=== PATIENT | female | born 1935 | race Two or more races ===

== ENCOUNTER 2017-09-20 09:11 | Inpatient (IN) | payer MEDICARE, MEDICAID ==
[~2017-09-20] VITALS: Ht 149.9 cm; Wt 62.8 kg
[~2017-09-20 09:11] MED LIST: ASPI81CH43 PO; ATE50T PO; DOCU1CAP24 PO; GABA100C9 PO; LOPE2CAP PO; LOSA25TA9 PO; NAPR375T27 PO; OMEP20CA74 OR
[2017-09-20] MEDS ORDERED: METO25TA62 PO (09:19)
[2017-09-20] MEDS ORDERED: MET50T PO (09:19)
[2017-09-20] MEDS ORDERED: SODIUM CHLORIDE 0.9% 1,000 ML IV ONE (09:53)
[2017-09-20] MEDS ORDERED: NITROGLYCERIN 0.4 MG SL TAB SL ONE (10:00)
[2017-09-20] MEDS ORDERED: ASPirin 81 mg TAB PO ONE (10:00)
[2017-09-20 10:34] LABS: Partial Thromboplastin Time 25.1 sec (22.64-33.71); Prothrombin Time 10.9 sec (9.37-12.3)
[2017-09-20 10:36] LABS: Alanine Aminotransferase 22 U/L (13-56); Albumin 3.9 g/dL (3.4-5.0); Alkaline Phosphatase 117 U/L (45-117); Anion Gap 11 (5-15); Aspartate Aminotransferase 20 U/L (15-37); BUN/Creatinine Ratio 11.9; Bilirubin, Total 1.3 mg/dL (0.2-1.0); Blood Urea Nitrogen 12 mg/dL (7-18); Calcium 8.4 mg/dL (8.5-10.1); Carbon Dioxide 25 mmol/L (21-32); Chloride 98 mmol/L (98-107); GFR African American 68 mL/min; GFR Non-African American 56 mL/min; Glucose 116 mg/dL (74-106); Potassium 3.8 mmol/L (3.5-5.1); Sodium 134 mmol/L (136-145); Total Protein 8.3 g/dL (6.4-8.2)
[2017-09-20 10:56] LABS: Eosinophils # (auto) 0 uL; Lymphocytes # (auto) 0.5 uL; Red Cell Distribution Width 14.4 % (11.8-14.3)
[2017-09-20 10:58] LABS: Basophils # (auto) 0.1 uL; Basophils % (auto) 0.5 % (0.0-2.0); Hematocrit 44.9 % (36.0-46.0); Hemoglobin 14.8 g/dL (12.2-16.2); Lymphocytes % (auto) 2.1 % (10.0-50.0); Mean Corpuscular Hemoglobin 26.9 pg (28.0-32.0); Mean Corpuscular Volume 81.4 fL (80.0-100.0); Monocytes # (auto) 1.3 uL; Monocytes % (auto) 6.1 % (0.0-12.0); Neutrophils # (auto) 19.9 uL; Neutrophils % (auto) 91.3 % (37.0-80.0); Platelet Count (auto) 284 10^3/uL (140-450); Red Blood Cells 5.51 10^6/uL (4.0-5.20); White Blood Cell 21.7 10^3/uL (4.4-10.8)
[2017-09-20] MEDS ORDERED: MORPHINE SULF INJ 2 MG/ML SYRINGE 1ML IV PRN ×2 (12:45)
[2017-09-20] MEDS ORDERED: ACETAMINOPHEN 500 MG TAB PO PRN (12:45)
[2017-09-20] MEDS ORDERED: ONDANSETRON HCL 4 MG/2 ML VIAL IV PRN (12:45)
[2017-09-20] MEDS ORDERED: KETOROLAC TROMETH 30 MG/ML 1ML VIAL IV ONE (12:45)
[2017-09-20] MEDS ORDERED: NITROGLYCERIN 0.4 MG SL TAB SL PRN (12:45)
[2017-09-20] MEDS ORDERED: AZITHROMYCIN 500MG/ 250ML 250 ML IV ONE (12:45)
[2017-09-20] MEDS ORDERED: cefTRIAXone 1GM/10ml IVPUSH 10 ML IV ONE (12:45)
[2017-09-20] MEDS ORDERED: PANTOPRAZOLE 40 MG/10 ML VIAL IV ONE (13:00)
[2017-09-20 13:13] LABS: Cholesterol 182 mg/dL (< 200); HDL Cholesterol 88 mg/dL (40-59); LDL Cholesterol 90 mg/dL (< 100); Triglycerides 97 mg/dL (< 150)
[2017-09-20 13:29] LABS: Urine Bacteria NONE SEEN /hpf (None Seen); Urine Blood Negative /uL (Negative); Urine Mucus FEW (None Seen); Urine Specific Gravity 1.017 (1.001-1.035); Urine WBC 4 /hpf (0 - 5)
[2017-09-20] MEDS: SODIUM CHLORIDE 0.9% 1,000 ML IV SCH (14:22)
[2017-09-20 17:14] VITALS: BP 143/77
[2017-09-20 17:37] VITALS: BP 139/75
[2017-09-20] MEDS: HYDROcodone-ACET 5/325MG TAB PO PRN (18:45)
[2017-09-20] MEDS: IPRATROPIUM BROM 0.5 MG/2.5ML INH SOL NEB SCH (19:27)
[2017-09-20] MEDS: ALBUTEROL SULF 2.5 MG/0.5ML(0.5%) NEB SOLN NEB SCH (19:27)
[2017-09-20] MEDS: METOPROLOL TARTRATE 25 MG TAB PO SCH (22:00)
[2017-09-20 22:06] VITALS: BP 93/61
[2017-09-20 23:14] VITALS: BP 102/68
[2017-09-20 23:23] VITALS: BP 93/61
[2017-09-21] MEDS: IPRATROPIUM BROM 0.5 MG/2.5ML INH SOL NEB SCH ×4 (00:51→18:48)
[2017-09-21] MEDS: ALBUTEROL SULF 2.5 MG/0.5ML(0.5%) NEB SOLN NEB SCH ×4 (00:51→18:48)
[2017-09-21 04:50] VITALS: BP 111/69
[2017-09-21] MEDS: SODIUM CHLORIDE 0.9% 1,000 ML IV SCH (06:22)
[2017-09-21 07:28] LABS: Basophils # (auto) 0 uL; Basophils % (auto) 0.2 % (0.0-2.0); Eosinophils # (auto) 0 uL; Hemoglobin 12.9 g/dL (12.2-16.2)
[2017-09-21 07:32] LABS: Hematocrit 38.5 % (36.0-46.0); Lymphocytes # (auto) 0.9 uL; Lymphocytes % (auto) 4.4 % (10.0-50.0); Mean Corpuscular Hemoglobin 27.1 pg (28.0-32.0); Mean Corpuscular Hgb Conc. 33.5 g/dL (32.0-36.0); Monocytes # (auto) 0.9 uL; Monocytes % (auto) 4.3 % (0.0-12.0); Neutrophils # (auto) 18.9 uL; Neutrophils % (auto) 91.1 % (37.0-80.0); Platelet Count (auto) 236 10^3/uL (140-450); Red Blood Cells 4.76 10^6/uL (4.0-5.20); Red Cell Distribution Width 14.3 % (11.8-14.3); White Blood Cell 20.7 10^3/uL (4.4-10.8)
[2017-09-21 07:48] LABS: BUN/Creatinine Ratio 28.7; Potassium 3.8 mmol/L (3.5-5.1)
[2017-09-21] MEDS: cefTRIAXone 1GM/10ml IVPUSH 10 ML IV SCH (08:56)
[2017-09-21 09:00] VITALS: BP 113/61
[2017-09-21] MEDS ORDERED: PANTOPRAZOLE 40 MG/10 ML VIAL IV SCH (10:00)
[2017-09-21] MEDS: AZITHROMYCIN 500MG/ 250ML 250 ML IV SCH (10:33)
[2017-09-21] MEDS: METOPROLOL TARTRATE 25 MG TAB PO SCH ×2 (10:34→21:41)
[2017-09-21] MEDS: ASPirin-EC 81 mg tab PO SCH (10:34)
[2017-09-21 13:00] VITALS: BP 127/72
[2017-09-21 16:33] VITALS: BP 129/65
[2017-09-21] MEDS: HYDROcodone-ACET 5/325MG TAB PO PRN (21:40)
[2017-09-21 22:00] VITALS: BP 145/84
[2017-09-22] MEDS: IPRATROPIUM BROM 0.5 MG/2.5ML INH SOL NEB SCH ×4 (00:32→19:42)
[2017-09-22] MEDS: ALBUTEROL SULF 2.5 MG/0.5ML(0.5%) NEB SOLN NEB SCH ×4 (00:32→19:42)
[2017-09-22 05:00] VITALS: BP 144/82
[2017-09-22 06:32] LABS: Basophils # (auto) 0 uL; Eosinophils # (auto) 0.1 uL; Hematocrit 39.4 % (36.0-46.0); Monocytes # (auto) 0.7 uL; Neutrophils # (auto) 11.4 uL; White Blood Cell 13.3 10^3/uL (4.4-10.8)
[2017-09-22 06:35] LABS: Basophils % (auto) 0.2 % (0.0-2.0); Eosinophils % (auto) 0.8 % (0.0-7.0); Hemoglobin 12.9 g/dL (12.2-16.2); Lymphocytes % (auto) 7.8 % (10.0-50.0); Mean Corpuscular Hemoglobin 26.6 pg (28.0-32.0); Mean Corpuscular Hgb Conc. 32.7 g/dL (32.0-36.0); Mean Corpuscular Volume 81.3 fL (80.0-100.0); Monocytes % (auto) 5.4 % (0.0-12.0); Neutrophils % (auto) 85.8 % (37.0-80.0); Nucleated Red Blood Cells % 0.1 %; Platelet Count (auto) 246 10^3/uL (140-450); Red Blood Cells 4.84 10^6/uL (4.0-5.20); Red Cell Distribution Width 14.5 % (11.8-14.3)
[2017-09-22] MEDS: cefTRIAXone 1GM/10ml IVPUSH 10 ML IV SCH (08:48)
[2017-09-22] MEDS: PANTOPRAZOLE 40 MG TAB PO SCH (09:26)
[2017-09-22] MEDS: ASPirin-EC 81 mg tab PO SCH (09:26)
[2017-09-22] MEDS: METOPROLOL TARTRATE 25 MG TAB PO SCH ×2 (09:27→21:42)
[2017-09-22] MEDS: AZITHROMYCIN 500MG/ 250ML 250 ML IV SCH (09:27)
[2017-09-22 09:48] VITALS: BP 150/89
[2017-09-22 13:55] VITALS: BP 149/82
[2017-09-22 17:00] VITALS: BP 141/85
[2017-09-22] MEDS ORDERED: MORPHINE SULFATE 4 MG/ML SYR/VIAL IV PRN ×2 (20:15)
[2017-09-22 22:00] VITALS: BP 165/101
[2017-09-23] MEDS ORDERED: METOPROLOL TARTRATE 25 MG TAB PO ONE (01:00)
[2017-09-23] MEDS: IPRATROPIUM BROM 0.5 MG/2.5ML INH SOL NEB SCH ×3 (01:15→11:39)
[2017-09-23] MEDS: ALBUTEROL SULF 2.5 MG/0.5ML(0.5%) NEB SOLN NEB SCH ×3 (01:16→11:39)
[2017-09-23 05:30] VITALS: BP 158/95
[2017-09-23] MEDS ORDERED: LOSARTAN POTASSIUM 25 MG TAB PO SCH (10:00)
[2017-09-23] MEDS ORDERED: AZITHROMYCIN 250 MG TAB PO SCH (10:00)
[2017-09-23 10:23] VITALS: BP 147/86
[2017-09-23] MEDS: METOPROLOL TARTRATE 25 MG TAB PO SCH (11:02)
[2017-09-23] MEDS: PANTOPRAZOLE 40 MG TAB PO SCH (11:02)
[2017-09-23] MEDS: ASPirin-EC 81 mg tab PO SCH (11:02)
[2017-09-23] MEDS: cefTRIAXone 1GM/10ml IVPUSH 10 ML IV SCH (11:03)
[2017-09-23] MEDS ORDERED: LOSARTAN POTASSIUM 25 MG TAB PO ONE (12:45)
[2017-09-23 13:00] VITALS: BP 163/108
== END 2017-09-23 16:33 | disposition home or self-care (01) | DRG 720 ==
LOC: ER 09:11 → TELE 09:12 → TELE-WESTW 16:45 → WEST WING 09-22 12:29
PROVIDERS: ADMIT Internal Medicine; ATTEND Internal Medicine
DX: A41.9 Sepsis, unspecified organism (principal); J18.9 Pneumonia, unspecified organism; J44.0 Chronic obstructive pulmonary disease with (acute) lower respiratory infection; I11.9 Hypertensive heart disease without heart failure; E11.9 Type 2 diabetes mellitus without complications; G89.29 Other chronic pain; J44.1 Chronic obstructive pulmonary disease with (acute) exacerbation; K21.9 Gastro-esophageal reflux disease without esophagitis; M54.5 Low back pain; K27.9 Peptic ulcer, site unspecified, unspecified as acute or chronic, without hemorrhage or perforation; K57.90 Diverticulosis of intestine, part unspecified, without perforation or abscess without bleeding; M19.90 Unspecified osteoarthritis, unspecified site; Z79.82 Long term (current) use of aspirin; Z79.899 Other long term (current) drug therapy; Z82.49 Family history of ischemic heart disease and other diseases of the circulatory system; Z83.3 Family history of diabetes mellitus; Z90.710 Acquired absence of both cervix and uterus; Z79.84 Long term (current) use of oral hypoglycemic drugs; Z90.49 Acquired absence of other specified parts of digestive tract
CPT/HCPCS: 36415; 71045; 80048; 80053; 80061; 81001; 83036; 83880; 84443; 84484; 85025; 85610; 85652; 85730; 87086; 87400; 93005; 93306; 94640; 96372; 96374; 96375; C9113; J1885

== ENCOUNTER → 2019-05-22 | Outpatient (CLI) | payer MEDICARE, MEDICAID ==
[~2019-05-22] VITALS: Ht 147.3 cm; Wt 61.7 kg
[~2019-05-22] MED LIST changes: -ATE50T PO; +DOBUTamine 1000MCG/ML 100 ML IV ONE; +DOBUTamine 1000MCG/ML 250 ML IV ONE; -DOCU1CAP24 PO; -LOPE2CAP PO; +LOSA25TA38 PO; -LOSA25TA9 PO; +MET50T PO; -NAPR375T27 PO; -OMEP20CA74 OR; +cloNIDine HCL 0.1 MG TAB ONE
== END | disposition home or self-care (01) ==
LOC: Rad HDHVI 12:53
PROVIDERS: ATTEND Internal Medicine
DX: I10 Essential (primary) hypertension (principal); M25.511 Pain in right shoulder; E78.5 Hyperlipidemia, unspecified; J44.9 Chronic obstructive pulmonary disease, unspecified
CPT/HCPCS: 78452; 93005; 96374; 96375; A9500; J1250

== ENCOUNTER → 2019-11-01 | Outpatient (CLI) | payer MEDICARE, MEDICAID ==
[~2019-11-01] MED LIST changes: -DOBUTamine 1000MCG/ML 100 ML IV ONE; -DOBUTamine 1000MCG/ML 250 ML IV ONE; -cloNIDine HCL 0.1 MG TAB ONE
== END | disposition home or self-care (01) ==
LOC: Rad HDHVI 09:54
PROVIDERS: ATTEND Internal Medicine Cardiovascular Disease
DX: I35.1 Nonrheumatic aortic (valve) insufficiency (principal); R94.4 Abnormal results of kidney function studies; I10 Essential (primary) hypertension; J44.9 Chronic obstructive pulmonary disease, unspecified; R07.9 Chest pain, unspecified
CPT/HCPCS: 36415; 82565; 93306

== ENCOUNTER → 2019-12-28 | Outpatient (CLI) | payer MEDICARE, MEDICAID ==
[~2019-12-28] MED LIST changes: +FUROSEMIDE 100 MG/10ML VIAL IV ONE; +FUROSEMIDE INJECTION 10 ML ONE; +POTASSIUM CHL 10 Meq TABLET PO ONE
[2019-12-28 10:00] VITALS: BP 173/76
--- NOTE | 2019-12-28 10:00 | NUR ---
PATIENT CAME INTO CLINIC WITH BILAT LOWER EXTREMITY SWELLING, PATIENT IS CZECH SPEAKING, HALLIE USED EDGE BEADER FOR PT AND DAUGHTER. PATIENT AAOx4, AMBULATORY, ON 2 LPM N/C.
--- NOTE | 2019-12-28 10:30 | NUR ---
IV insertion IV access obtained, via clean sterile technique by inserting 22 gauge catheter at LAC after 2 attempt(s). IV secured properly. No trauma to site. Patient tolerated procedure well.
[2019-12-28 12:03] LABS: Basophils # (auto) 0 10 ^3/uL (0-0.2); Eosinophils # (auto) 0.1 10 ^3/uL (0-0.8); Hemoglobin 12.2 g/dL (12.2-16.2); Lymphocytes # (auto) 1.2 10 ^3/uL (0.4-5.4); Monocytes # (auto) 0.4 10 ^3/uL (0-1.3); Monocytes % (auto) 7.6 % (0.0-12.0); Neutrophils # (auto) 3.9 10 ^3/uL (1.6-8.6); White Blood Cell 5.7 10^3/uL (4.4-10.8)
[2019-12-28 12:06] LABS: Basophils % (auto) 0.4 % (0.0-2.0); Eosinophils % (auto) 1.9 % (0.0-7.0); Hematocrit 37.8 % (36.0-46.0); Lymphocytes % (auto) 21.3 % (10.0-50.0); Mean Corpuscular Hemoglobin 26.2 pg (28.0-32.0); Mean Corpuscular Hgb Conc. 32.2 g/dL (32.0-36.0); Mean Corpuscular Volume 81.3 fL (80.0-100.0); Neutrophils % (auto) 68.8 % (37.0-80.0); Nucleated Red Blood Cells % 0.1 %; Platelet Count (auto) 307 10^3/uL (140-450); Red Blood Cells 4.65 10^6/uL (4.0-5.20); Red Cell Distribution Width 14.5 % (11.8-14.3)
[2019-12-28 12:15] LABS: Albumin 3.4 g/dL (3.4-5.0); Calcium 8.5 mg/dL (8.5-10.1); Magnesium 2.2 mg/dL (1.6-2.6); Potassium 4.2 mmol/L (3.5-5.1)
[2019-12-28 12:20] LABS: BUN/Creatinine Ratio 19.4; Bilirubin, Total 0.6 mg/dL (0.2-1.0); Total Protein 7.1 g/dL (6.4-8.2)
--- NOTE | 2019-12-28 13:00 | NUR ---
PATIENT LABS BACK, MD UPDATED.
--- NOTE | 2019-12-28 13:56 | NUR ---
IV removal IV DC'd with sterile technique, catheter fully intact. Pressure dressing applied to site. Patient tolerated procedure well.
[2019-12-28 14:00] VITALS: BP 188/89
--- NOTE | 2019-12-28 14:00 | NUR ---
[facility] CLINIC Discharge Instructions See e-MAR for any mediations given with this visit. Patient education given on disease process. Patient verbalized understanding. Previous labs reviewed. Patient discharged in stable condition with after care instructions and follow up appointment. NOTE PATIENT WILL TAKE SCHEDULED BP MEDS AT HOME. LASIX IVP ADMIN BY CAROLINE CARO POTASSIUM PO ADMIN BY CAROLINE CARO. VOIDED X6.
== END | disposition home or self-care (01) ==
LOC: CHF HDHVI 10:26
PROVIDERS: ATTEND Internal Medicine Cardiovascular Disease
DX: I50.9 Heart failure, unspecified (principal); Z79.899 Other long term (current) drug therapy
CPT/HCPCS: 36415; 80053; 83735; 83880; 85025; 96374; G0463; J1940

== ENCOUNTER → 2020-05-27 | Outpatient (CLI) | payer MEDICARE, MEDICAID ==
[~2020-05-27] MED LIST changes: -FUROSEMIDE 100 MG/10ML VIAL IV ONE; -FUROSEMIDE INJECTION 10 ML ONE; -POTASSIUM CHL 10 Meq TABLET PO ONE
== END | disposition home or self-care (01) ==
LOC: Rad HDHVI 13:06
PROVIDERS: ATTEND Internal Medicine Cardiovascular Disease
DX: I10 Essential (primary) hypertension (principal); I42.1 Obstructive hypertrophic cardiomyopathy; R07.89 Other chest pain
CPT/HCPCS: 93306

== ENCOUNTER → 2020-12-09 | Outpatient (CLI) | payer MEDICARE, MEDICAID | END | disposition home or self-care (01) | LOC: Rad HDHVI 12:20 | PROVIDERS: ATTEND Internal Medicine | DX: M19.011 Primary osteoarthritis, right shoulder (principal); M25.511 Pain in right shoulder | CPT/HCPCS: 73030 ==

== ENCOUNTER 2022-06-09 09:19 | Inpatient (IN) | payer MEDICARE, MEDICAID ==
[~2022-06-09] VITALS: Ht 160 cm; Wt 72.4 kg
[2022-06-09 09:58] LABS: Basophils # (auto) 0 10 ^3/uL (0-0.2); Basophils % (auto) 0.3 % (0.0-2.0); Eosinophils # (auto) 0.1 10 ^3/uL (0-0.8); Eosinophils % (auto) 1.1 % (0.0-7.0); Hematocrit 38.1 % (36.0-46.0); Hemoglobin 12.4 g/dL (12.2-16.2); Lymphocytes # (auto) 1.3 10 ^3/uL (0.4-5.4); Lymphocytes % (auto) 23.1 % (10.0-50.0); Mean Corpuscular Hemoglobin 26.4 pg (28.0-32.0); Mean Corpuscular Hgb Conc. 32.7 g/dL (32.0-36.0); Mean Corpuscular Volume 80.7 fL (80.0-100.0); Monocytes # (auto) 0.4 10 ^3/uL (0-1.3); Neutrophils % (auto) 68.5 % (37.0-80.0); Red Blood Cells 4.72 10^6/uL (4.0-5.20); Red Cell Distribution Width 14.1 % (11.8-14.3); White Blood Cell 5.8 10^3/uL (4.4-10.8)
[2022-06-09 10:17] LABS: Albumin 3.8 g/dL (3.4-5.0); Calcium 8.4 mg/dL (8.5-10.1); Potassium 3.9 mmol/L (3.5-5.1)
[2022-06-09 10:21] LABS: BUN/Creatinine Ratio 12.7; Bilirubin, Total 0.7 mg/dL (0.2-1.0); Total Protein 7.4 g/dL (6.4-8.2)
[2022-06-09] MEDS ORDERED: ASPirin 81 mg TAB PO ONE (11:00)
[2022-06-09] MEDS ORDERED: dilTIAZem 25 MG/5 ML VIAL IV ONE (11:00)
[2022-06-09] MEDS ORDERED: dilTIAZem 120MG ER CAP PO ONE (12:15)
[2022-06-09] MEDS ORDERED: ONDANSETRON HCL 4 MG/2 ML VIAL IV PRN (15:45)
[2022-06-09] MEDS ORDERED: MORPHINE SULFATE INJ 2 MG/ml SYRG IV PRN (15:45)
[2022-06-09] MEDS ORDERED: PANTOPRAZOLE 40 MG/10 ML VIAL INJ IV ONE (15:45)
[2022-06-09] MEDS ORDERED: ACETAMINOPHEN 325 MG TAB PO PRN (15:45)
[2022-06-09] MEDS ORDERED: NITROGLYCERIN 0.4 MG SL TAB SL PRN (15:45)
[2022-06-09] MEDS ORDERED: DEXTROSE (50%) 50ML SYRG IV PRN (16:30)
[2022-06-09] MEDS: InsuLIN REG 1unit/0.01ml Soln (100units/ml) SC SCH ×2 (17:00→22:35)
[2022-06-09] MEDS: SODIUM CHLORIDE 0.9% 1,000 ML IV SCH (17:08)
[2022-06-09] MEDS: ACCU-CHEK COMFORT CURVE STRIP VI SCH ×2 (17:15→22:35)
[2022-06-09 17:23] LABS: Cholesterol 198 mg/dL (< 200)
[2022-06-09 17:26] LABS: HDL Cholesterol 72 mg/dL (40-59); LDL Cholesterol 114 mg/dL (< 100); Triglycerides 151 mg/dL (< 150)
[2022-06-09 18:22] LABS: Urine Bacteria FEW /hpf (None Seen); Urine Blood Negative /uL (Negative); Urine Mucus FEW (None Seen); Urine Specific Gravity 1.006 (1.001-1.035); Urine WBC 1 /hpf (0 - 5)
[2022-06-09] MEDS: METOPROLOL TARTRATE 50 MG TAB PO SCH (22:36)
[2022-06-09] MEDS: ATORVASTATIN 20 MG TAB PO SCH (22:36)
[2022-06-10 05:56] LABS: Albumin 3.4 g/dL (3.4-5.0); Calcium 8.6 mg/dL (8.5-10.1); Potassium 4.2 mmol/L (3.5-5.1)
[2022-06-10 06:02] LABS: Basophils # (auto) 0 10 ^3/uL (0-0.2); Basophils % (auto) 0.3 % (0.0-2.0); Eosinophils # (auto) 0 10 ^3/uL (0-0.8); Eosinophils % (auto) 0.5 % (0.0-7.0); Hematocrit 35.4 % (36.0-46.0); Hemoglobin 11.5 g/dL (12.2-16.2); Mean Corpuscular Hgb Conc. 32.4 g/dL (32.0-36.0); Monocytes # (auto) 0.4 10 ^3/uL (0-1.3); White Blood Cell 6.5 10^3/uL (4.4-10.8)
[2022-06-10 06:06] LABS: Lymphocytes % (auto) 15.5 % (10.0-50.0); Mean Corpuscular Volume 80.2 fL (80.0-100.0); Monocytes % (auto) 6.6 % (0.0-12.0); Neutrophils % (auto) 77.1 % (37.0-80.0); Red Blood Cells 4.41 10^6/uL (4.0-5.20); Red Cell Distribution Width 14.4 % (11.8-14.3)
[2022-06-10 06:11] LABS: BUN/Creatinine Ratio 18.5; Total Protein 6.8 g/dL (6.4-8.2)
[2022-06-10] MEDS: InsuLIN REG 1unit/0.01ml Soln (100units/ml) SC SCH ×4 (07:00→22:00)
[2022-06-10] MEDS: ACCU-CHEK COMFORT CURVE STRIP VI SCH ×4 (07:12→22:16)
[2022-06-10] MEDS: SODIUM CHLORIDE 0.9% 1,000 ML IV SCH (08:25)
[2022-06-10] MEDS: ENOXAPARIN SOD 40 MG/0.4 ML SYRINGE SC SCH (11:37)
[2022-06-10] MEDS: PANTOPRAZOLE 40 MG/10 ML VIAL INJ IV SCH (11:37)
[2022-06-10] MEDS: ASPirin 81 mg TAB PO SCH (11:38)
[2022-06-10] MEDS: METOPROLOL TARTRATE 50 MG TAB PO SCH ×2 (11:38→23:11)
[2022-06-10] MEDS: LOSARTAN POTASSIUM 25 MG TAB PO SCH (11:39)
[2022-06-10] MEDS ORDERED: OMEP-260 PO (14:04)
[2022-06-10] MEDS ORDERED: LOSA-39 PO (14:04)
[2022-06-10] MEDS ORDERED: AMLO-489 PO (14:04)
[2022-06-10] MEDS ORDERED: ALBUAER3 IN (14:04)
[2022-06-10] MEDS ORDERED: ATEN100T PO (14:04)
[2022-06-10] MEDS ORDERED: MELO1TAB73 PO (14:04)
[2022-06-10] MEDS ORDERED: ACET-1156 PO (14:04)
[2022-06-10 16:51] VITALS: BP 147/77
[2022-06-10 20:00] VITALS: BP 130/72
[2022-06-10 22:00] VITALS: BP 130/72
[2022-06-10] MEDS: ATORVASTATIN 20 MG TAB PO SCH (22:17)
[2022-06-11 05:00] VITALS: BP 133/63
[2022-06-11] MEDS: InsuLIN REG 1unit/0.01ml Soln (100units/ml) SC SCH ×3 (06:18→16:51)
[2022-06-11] MEDS: ACCU-CHEK COMFORT CURVE STRIP VI SCH ×3 (06:18→16:51)
[2022-06-11 08:53] VITALS: BP 122/61
[2022-06-11] MEDS: LOSARTAN POTASSIUM 25 MG TAB PO SCH (09:47)
[2022-06-11] MEDS: ASPirin 81 mg TAB PO SCH (09:47)
[2022-06-11] MEDS: PANTOPRAZOLE 40 MG/10 ML VIAL INJ IV SCH (09:47)
[2022-06-11] MEDS: METOPROLOL TARTRATE 50 MG TAB PO SCH ×2 (09:48→21:36)
[2022-06-11] MEDS: ENOXAPARIN SOD 40 MG/0.4 ML SYRINGE SC SCH (09:48)
[2022-06-11] MEDS ORDERED: FUROSEMIDE 40 MG/4 ML VIAL IV SCH (10:00)
[2022-06-11] MEDS ORDERED: ADENOSINE 60 MG in GIVE UN-DILUTED 0 ML IV ONE (10:45)
[2022-06-11 12:40] VITALS: BP 123/76
[2022-06-11 20:28] VITALS: BP 123/76
[2022-06-11] MEDS: ATORVASTATIN 20 MG TAB PO SCH (21:35)
[2022-06-11 21:45] VITALS: BP 158/77
== END 2022-06-11 20:25 | disposition home or self-care (01) | DRG 201 ==
LOC: ER 09:19 → TELE 15:37 → TELE-WESTW 06-10 15:31
PROVIDERS: ADMIT Nurse Practitioner Family; ATTEND Student in an Organized Health Care Education/Training Program
DX: I47.1 Supraventricular tachycardia (principal); J96.10 Chronic respiratory failure, unspecified whether with hypoxia or hypercapnia; Z99.81 Dependence on supplemental oxygen; R07.89 Other chest pain; I48.91 Unspecified atrial fibrillation; Z68.30 Body mass index [BMI] 30.0-30.9, adult; J43.9 Emphysema, unspecified; J98.11 Atelectasis; E66.01 Morbid (severe) obesity due to excess calories; I10 Essential (primary) hypertension; R73.03 Prediabetes; M54.50 Low back pain, unspecified; R73.9 Hyperglycemia, unspecified; Z90.710 Acquired absence of both cervix and uterus; Z90.49 Acquired absence of other specified parts of digestive tract; Z79.01 Long term (current) use of anticoagulants; Z68.28 Body mass index [BMI] 28.0-28.9, adult
CPT/HCPCS: 36415; 71046; 71275; 72100; 78452; 80053; 80061; 81001; 82962; 83036; 83735; 83880; 84443; 84484; 85025; 85379; 87426; 93005; 93017; 93306; 96361; 96374; 99291; C9113; G0378; J0153

== ENCOUNTER → 2023-02-07 | Outpatient (CLI) | payer MEDICARE, MEDICAID ==
[~2023-02-07] MED LIST changes: +ACET-1881 PO; +ALBUAER3 IN; +AMLO1TAB22 PO; -ASPI81CH43 PO; +ATEN100T PO; +BUMETANIDE 1mg/4ml VIAL (0.25mg/ml) ONE; +BUMETANIDE 2.5mg/10ml (0.25 mg/ml) INJ IV ONE; -GABA100C9 PO; +LOSA100T58 PO; -LOSA25TA38 PO; +MELO7.5T7 PO; -MET50T PO; +OMEP1CAP70 PO; +POTASSIUM CHL 20 Meq TABLET PO ONE
[2023-02-07 11:18] VITALS: BP 124/60
[2023-02-07 11:44] VITALS: BP 156/78
== END | disposition home or self-care (01) ==
LOC: CHF HDHVI 11:21
PROVIDERS: ATTEND Internal Medicine Cardiovascular Disease
DX: I10 Essential (primary) hypertension (principal); J43.9 Emphysema, unspecified; J96.10 Chronic respiratory failure, unspecified whether with hypoxia or hypercapnia; I48.91 Unspecified atrial fibrillation; E66.01 Morbid (severe) obesity due to excess calories; Z68.30 Body mass index [BMI] 30.0-30.9, adult; Z79.01 Long term (current) use of anticoagulants; Z99.81 Dependence on supplemental oxygen; Z90.49 Acquired absence of other specified parts of digestive tract; Z90.710 Acquired absence of both cervix and uterus
CPT/HCPCS: 96374; G0463; J3490

== ENCOUNTER → 2023-08-01 | Outpatient (CLI) | payer MEDICARE, MEDICAID ==
[~2023-08-01] MED LIST changes: +BUME2TAB5 PO; -BUMETANIDE 1mg/4ml VIAL (0.25mg/ml) ONE; -BUMETANIDE 2.5mg/10ml (0.25 mg/ml) INJ IV ONE; +CHOL20007 PO; +FER325T PO; +POM; +POTA-220 PO; -POTASSIUM CHL 20 Meq TABLET PO ONE; +RANO500T3 PO
[2023-08-01 13:17] VITALS: BP 177/84; PULSE 74; RESP 16; O2SAT 97
[2023-08-01 13:32] VITALS: BP 144/69; PULSE 77; RESP 16; O2SAT 97
== END | disposition home or self-care (01) ==
LOC: CHF HDHVI 12:57
PROVIDERS: ATTEND Internal Medicine Cardiovascular Disease
DX: Z01.818 Encounter for other preprocedural examination (principal); I11.0 Hypertensive heart disease with heart failure; I50.33 Acute on chronic diastolic (congestive) heart failure; R06.02 Shortness of breath; R60.1 Generalized edema
CPT/HCPCS: 93005; G0463

== ENCOUNTER 2023-08-04 08:01 | Day surgery (SDC) | payer MEDICARE, MEDICAID ==
[2023-08-01 14:09] LABS: Basophils # (auto) 0 10 ^3/uL (0-0.2); Eosinophils # (auto) 0.3 10 ^3/uL (0-0.8); Hemoglobin 11.4 g/dL (12.2-16.2); Monocytes # (auto) 0.8 10 ^3/uL (0-1.3); White Blood Cell 7.7 10^3/uL (4.4-10.8)
[2023-08-01 14:11] LABS: Basophils % (auto) 0.4 % (0.0-2.0); Eosinophils % (auto) 3.9 % (0.0-7.0); Hematocrit 35.1 % (36.0-46.0); Lymphocytes # (auto) 1.6 10 ^3/uL (0.4-5.4); Lymphocytes % (auto) 20.5 % (10.0-50.0); Mean Corpuscular Hemoglobin 25.8 pg (28.0-32.0); Mean Corpuscular Hgb Conc. 32.4 g/dL (32.0-36.0); Mean Corpuscular Volume 79.9 fL (80.0-100.0); Monocytes % (auto) 10.6 % (0.0-12.0); Neutrophils % (auto) 64.6 % (37.0-80.0); Red Cell Distribution Width 14.9 % (11.8-14.3)
[2023-08-01 14:26] LABS: Anion Gap 5 (5-15); Carbon Dioxide 33 mmol/L (20-30); Chloride 102 mmol/L (98-107); Potassium 4.8 mmol/L (3.5-5.1); Sodium 140 mmol/L (136-145)
[2023-08-01 14:27] LABS: Calcium 9.4 mg/dL (8.5-10.1)
[2023-08-01 14:30] LABS: INR 0.98 (0.9-1.15); Partial Thromboplastin Time 26.6 SEC (24.5-34.5); Prothrombin Time 10.3 sec (9.3-11.8)
[2023-08-01 14:32] LABS: BUN/Creatinine Ratio 23.2 (10.0-20.0); Blood Urea Nitrogen 16 mg/dL (9-23); Glucose 114 mg/dL (74-106)
[~2023-08-04] VITALS: Ht 144.8 cm; Wt 71.2 kg
[2023-08-04] VITALS (10 sets, daily range): BP systolic 101–158; BP diastolic 59–98; PULSE 79–97; RESP 13–20; TEMP 97.6; O2SAT 94–99
[~2023-08-04 08:01] MED LIST changes: -ACET-1881 PO; -AMLO1TAB22 PO
[2023-08-04] MEDS ORDERED: fentaNYL CITRATE 100 MCG/2 ML VL ONE (10:00)
[2023-08-04] MEDS ORDERED: MIDAZOLAM HCL 2MG/2ML 2ml VIAL (1mg/ml) ONE (10:00)
[2023-08-04] MEDS ORDERED: SODIUM CHL 0.9% 0 ML ONE (10:00)
[2023-08-04] MEDS ORDERED: ANGIOMAX 250 MG VIAL IV ONE (10:00)
[2023-08-04] MEDS ORDERED: LIDOCAINE 2%HCL (LOCAL ANESTH.) INJ 20ML MDV ONE (10:00)
== END 2023-08-04 13:05 | disposition home or self-care (01) ==
LOC: CATH 08:01
PROVIDERS: ATTEND Internal Medicine Cardiovascular Disease
DX: R07.89 Other chest pain (principal); I73.9 Peripheral vascular disease, unspecified; J44.9 Chronic obstructive pulmonary disease, unspecified; I11.0 Hypertensive heart disease with heart failure; I50.9 Heart failure, unspecified; R06.02 Shortness of breath
CPT/HCPCS: 36415; 80048; 85025; 85610; 85730; 93458; C1894; J2250; J3010; 99152

== ENCOUNTER 2023-11-12 07:39 | Inpatient (IN) | payer MEDICARE, MEDICAID ==
[~2023-11-12] VITALS: Ht 144.8 cm; Wt 67.8 kg
[~2023-11-12 07:39] MED LIST changes: +LOSA-535 PO; -LOSA100T58 PO
[2023-11-12 08:10] VITALS: PULSE 68; RESP 14; O2SAT 98
[2023-11-12] MEDS: ALBUTEROL SULF 2.5 MG/0.5ML(0.5%) NEB SOLN NEB ONE (08:15)
[2023-11-12] MEDS: IPRATROPIUM BROM 0.5 MG/2.5ML INH SOL NEB ONE (08:15)
[2023-11-12 08:43] LABS: Basophils # (auto) 0 10 ^3/uL (0-0.2); Basophils % (auto) 0.4 % (0.0-2.0); Eosinophils # (auto) 0.1 10 ^3/uL (0-0.8); Eosinophils % (auto) 1.8 % (0.0-7.0); Hematocrit 38.6 % (36.0-46.0); Hemoglobin 12.1 g/dL (12.2-16.2); Lymphocytes # (auto) 0.9 10 ^3/uL (0.4-5.4); Lymphocytes % (auto) 10.2 % (10.0-50.0); Mean Corpuscular Hemoglobin 24.6 pg (28.0-32.0); Mean Corpuscular Hgb Conc. 31.3 g/dL (32.0-36.0); Mean Corpuscular Volume 78.6 fL (80.0-100.0); Monocytes # (auto) 0.7 10 ^3/uL (0-1.3); Monocytes % (auto) 8.6 % (0.0-12.0); Neutrophils # (auto) 6.7 10 ^3/uL (1.6-8.6); Nucleated Red Blood Cells % 0.1 %; Red Blood Cells 4.91 10^6/uL (4.0-5.20); Red Cell Distribution Width 15.6 % (11.8-14.3); White Blood Cell 8.4 10^3/uL (4.4-10.8)
[2023-11-12] MEDS: methylPREDNISolone SOD SUCC 125 MG/2 ML VL IV ONE (08:46)
[2023-11-12 09:07] LABS: Alanine Aminotransferase 16 U/L (7-40); Albumin 4.2 g/dL (3.2-4.8); Alkaline Phosphatase 110 U/L (46-116); Anion Gap 7 (5-15); Aspartate Aminotransferase 23 U/L (13-40); Bilirubin, Total 0.7 mg/dL (0.2-1.0); Calcium 8.9 mg/dL (8.5-10.1); Carbon Dioxide 27 mmol/L (20-30); Chloride 103 mmol/L (98-107); Glucose 135 mg/dL (74-106); Potassium 3.7 mmol/L (3.5-5.1); Sodium 137 mmol/L (136-145); Total Protein 7.2 g/dL (5.7-8.2)
[2023-11-12 09:16] LABS: Urine Bacteria FEW /hpf (None Seen); Urine Blood Negative /uL (Negative); Urine Clarity Clear (Clear); Urine Protein, UAD TRACE (Negative); Urine Specific Gravity 1.005 (1.001-1.035); Urine Urobilinogen Normal (Negative); Urine WBC 1 /hpf (0 - 5); Urine pH 7.5 (5.0-8.0)
[2023-11-12 09:17] LABS: Urine Color Yellow (Yellow)
[2023-11-12 09:21] LABS: BUN/Creatinine Ratio 7.1 (10.0-20.0); Blood Urea Nitrogen < 5 mg/dL (9-23)
[2023-11-12] MEDS: dilTIAZem 25 MG/5 ML VIAL IV ONE (09:33)
[2023-11-12] MEDS: cefTRIAXone 1GM/50ML D5W 50 ML IV ONE (09:50)
[2023-11-12] MEDS ORDERED: NITROGLYCERIN 0.4 MG SL TAB SL PRN (10:00)
[2023-11-12] MEDS ORDERED: ONDANSETRON HCL 4 MG/2 ML VIAL IV PRN (10:00)
[2023-11-12] MEDS ORDERED: ACETAMINOPHEN 325 MG TAB PO PRN (10:00)
[2023-11-12] MEDS ORDERED: HYDROcodone-ACET 5/325MG TAB PO PRN (10:00)
[2023-11-12] MEDS ORDERED: MORPHINE SULFATE INJ 2 MG/ml SYRG IV PRN (10:00)
[2023-11-12] MEDS: ENOXAPARIN SOD 40 MG/0.4 ML SYRINGE SC SCH (10:15)
[2023-11-12] MEDS ORDERED: ALBUTEROL SULF HFA 90MCG INH 200DOSE IN PRN (10:30)
[2023-11-12 10:34] LABS: Triglycerides 138 mg/dL (< 150)
[2023-11-12 10:35] LABS: LDL Cholesterol 79 mg/dL (< 100)
[2023-11-12 10:36] LABS: HDL Cholesterol 67 mg/dL (40-59)
[2023-11-12 10:37] LABS: Cholesterol 160 mg/dL (< 200)
[2023-11-12 10:40] VITALS: BP 132/68; PULSE 65; RESP 18; TEMP 98.1; O2SAT 99
[2023-11-12] MEDS ORDERED: ALBUTEROL SULF 2.5 MG/0.5ML(0.5%) NEB SOLN NEB PRN (10:45)
[2023-11-12] MEDS: IOHEXOL 350 MG/ML 100ML IJ ONE (11:29)
[2023-11-12] MEDS: SODIUM CHLOR 0.9% PF (SALINE LOCK) 10ML VIAL/SYR IV SCH (14:06)
[2023-11-12] MEDS: FERROUS SULFATE 325mg EC TAB PO SCH (14:11)
[2023-11-12 14:38] LABS: Lipase 35 U/L (12-53)
[2023-11-12 18:37] VITALS: BP 116/80; PULSE 72; RESP 16; TEMP 97.9; O2SAT 96
[2023-11-12 19:50] VITALS: O2SAT 93
[2023-11-12 20:00] VITALS: PULSE 65; PULSE 67; RESP 18; O2SAT 96
[2023-11-12 21:00] VITALS: BP 122/60; PULSE 65; RESP 18; TEMP 98.2; O2SAT 96
[2023-11-12] MEDS: RANOLAZINE ER 500 MG TAB PO SCH (21:51)
[2023-11-12] MEDS ORDERED: APIXABAN 5 MG TAB PO SCH (22:00)
[2023-11-13] VITALS (10 sets, daily range): BP systolic 131–142; BP diastolic 50–71; PULSE 62–82; RESP 16–23; TEMP 97.9–98.7; O2SAT 93–96
[2023-11-13] MEDS: cefTRIAXone 1GM/50ML D5W 50 ML IV SCH (08:37)
[2023-11-13] MEDS: PANTOPRAZOLE 40 MG TAB PO SCH (08:42)
[2023-11-13] MEDS: CHOLECALCIFEROL (VITD3) 1,000UNIT=25mCg TAB PO SCH (08:42)
[2023-11-13] MEDS: BUMETANIDE 1 MG TAB PO SCH (08:44)
[2023-11-13] MEDS: LOSARTAN POTASSIUM 50 MG TAB PO SCH (08:47)
[2023-11-13] MEDS: ATENOLOL 25 MG TAB PO SCH (08:48)
[2023-11-13] MEDS: AZITHROMYCIN 500MG/ 250ML 250 ML IV SCH (12:28)
[2023-11-14] VITALS (10 sets, daily range): BP systolic 117–170; BP diastolic 56–76; PULSE 58–87; RESP 18–20; TEMP 97.6–98.5; O2SAT 93–96
[2023-11-15] VITALS (11 sets, daily range): BP systolic 105–147; BP diastolic 50–72; PULSE 52–62; RESP 16–18; TEMP 97.6–98.6; O2SAT 92–97
[2023-11-15 05:56] LABS: Anion Gap 4 (5-15); Carbon Dioxide 32 mmol/L (20-30); Chloride 102 mmol/L (98-107); Potassium 3.6 mmol/L (3.5-5.1); Sodium 138 mmol/L (136-145)
[2023-11-15 05:57] LABS: Calcium 8.8 mg/dL (8.7-10.4)
[2023-11-15 05:59] LABS: INR 1.04 (0.9-1.15); Partial Thromboplastin Time 26.2 SEC (24.5-34.5); Prothrombin Time 10.9 sec (9.3-11.8)
[2023-11-15 06:02] LABS: BUN/Creatinine Ratio 18.6 (10.0-20.0); Blood Urea Nitrogen 13 mg/dL (9-23); Glucose 108 mg/dL (74-106)
[2023-11-15 06:14] LABS: Basophils # (auto) 0 10 ^3/uL (0-0.2); Hemoglobin 12.5 g/dL (12.2-16.2); Lymphocytes # (auto) 1.5 10 ^3/uL (0.4-5.4)
[2023-11-15 06:22] LABS: Basophils % (auto) 0.3 % (0.0-2.0); Eosinophils # (auto) 0.1 10 ^3/uL (0-0.8); Eosinophils % (auto) 1.9 % (0.0-7.0); Hematocrit 38.5 % (36.0-46.0); Mean Corpuscular Hgb Conc. 32.4 g/dL (32.0-36.0); Mean Corpuscular Volume 77.1 fL (80.0-100.0); Monocytes # (auto) 0.7 10 ^3/uL (0-1.3); Monocytes % (auto) 9.4 % (0.0-12.0); Neutrophils # (auto) 5.4 10 ^3/uL (1.6-8.6); Neutrophils % (auto) 69.4 % (37.0-80.0); Nucleated Red Blood Cells % 0.1 %; Red Cell Distribution Width 15.4 % (11.8-14.3); White Blood Cell 7.8 10^3/uL (4.4-10.8)
[2023-11-15] MEDS: ASPirin 81 mg TAB PO SCH (09:31)
[2023-11-15] MEDS: AZITHROMYCIN 250 MG TAB PO ONE (11:55)
[2023-11-15 18:57] LABS: Base Excess 5.4 mmol/L (-2.0-2.0)
[2023-11-16] VITALS (11 sets, daily range): BP systolic 108–158; BP diastolic 57–88; PULSE 59–75; RESP 16–20; TEMP 97.9–98.4; O2SAT 95–98
[2023-11-16] MEDS: AZITHROMYCIN 250 MG TAB PO SCH (10:55)
[2023-11-16] MEDS ORDERED: CEFD300C2 PO (11:44)
[2023-11-17 01:00] VITALS: BP 131/63; PULSE 59; RESP 16; TEMP 98; O2SAT 95
[2023-11-17 05:00] VITALS: BP 118/57; PULSE 60; RESP 18; TEMP 98.2; O2SAT 97
[2023-11-17 07:49] VITALS: BP 134/62; PULSE 59; RESP 17; TEMP 97.5; O2SAT 98
[2023-11-17 08:00] VITALS: PULSE 54
[2023-11-17 08:50] VITALS: O2SAT 97
[2023-11-17 11:19] VITALS: BP 128/70; PULSE 69; RESP 18; TEMP 97.5; O2SAT 97
== END 2023-11-17 15:30 | disposition home or self-care (01) | DRG 720 ==
LOC: ER 07:39 → TELE 10:05 → TELE-EAST 18:20
PROVIDERS: ADMIT Internal Medicine; ATTEND Internal Medicine
PROC: 0GBG3ZX Excision of Left Thyroid Gland Lobe, Percutaneous Approach, Diagnostic (ICD-10-PCS; principal; 2023-11-15)
PROC: BW4FZZZ Ultrasonography of Neck (ICD-10-PCS; 2023-11-15)
DX: A41.9 Sepsis, unspecified organism (principal); J15.69 Pneumonia due to other Gram-negative bacteria; J96.10 Chronic respiratory failure, unspecified whether with hypoxia or hypercapnia; I11.0 Hypertensive heart disease with heart failure; J15.9 Unspecified bacterial pneumonia; J44.0 Chronic obstructive pulmonary disease with (acute) lower respiratory infection; I50.32 Chronic diastolic (congestive) heart failure; I48.0 Paroxysmal atrial fibrillation; I73.9 Peripheral vascular disease, unspecified; D64.9 Anemia, unspecified; N39.0 Urinary tract infection, site not specified; E04.2 Nontoxic multinodular goiter; E66.9 Obesity, unspecified; I25.10 Atherosclerotic heart disease of native coronary artery without angina pectoris; Z90.49 Acquired absence of other specified parts of digestive tract; Z68.32 Body mass index [BMI] 32.0-32.9, adult; Z90.710 Acquired absence of both cervix and uterus
CPT/HCPCS: 36415; 36600; 71045; 71046; 71275; 76536; 76942; 80048; 80053; 80061; 81001; 82805; 83605; 83690; 83735; 83880; 84443; 84484; 85025; 85379; 85610; 85730; 87086; 88172; 93005; 93306; 94640; 97110; 97116; 97163; 99291; G0378

== ENCOUNTER 2024-05-18 22:15 | Inpatient (IN) | payer MEDICARE, MEDICAID ==
[~2024-05-18] VITALS: Ht 165.1 cm; Wt 74.8 kg
[~2024-05-18 22:15] MED LIST changes: +CEFD300C2 PO
[2024-05-18 23:36] LABS: Basophils # (auto) 0 10 ^3/uL (0-0.2); Basophils % (auto) 0.3 % (0.0-2.0); Eosinophils # (auto) 0.1 10 ^3/uL (0-0.8); Eosinophils % (auto) 0.8 % (0.0-7.0); Hematocrit 34.7 % (36.0-46.0); Hemoglobin 11.4 g/dL (12.2-16.2); Lymphocytes # (auto) 1.2 10 ^3/uL (0.4-5.4); Lymphocytes % (auto) 16.2 % (10.0-50.0); Mean Corpuscular Hemoglobin 27.1 pg (28.0-32.0); Mean Corpuscular Hgb Conc. 32.9 g/dL (32.0-36.0); Mean Corpuscular Volume 82.3 fL (80.0-100.0); Monocytes # (auto) 0.5 10 ^3/uL (0-1.3); Monocytes % (auto) 6.8 % (0.0-12.0); Neutrophils # (auto) 5.8 10 ^3/uL (1.6-8.6); Neutrophils % (auto) 75.9 % (37.0-80.0); Platelet Count (auto) 272 10^3/uL (140-450); Red Blood Cells 4.21 10^6/uL (4.0-5.20); Red Cell Distribution Width 14.1 % (11.8-14.3); White Blood Cell 7.6 10^3/uL (4.4-10.8)
[2024-05-18 23:47] LABS: Chloride 105 mmol/L (98-107); Potassium 4.2 mmol/L (3.5-5.1); Sodium 141 mmol/L (136-145)
[2024-05-18 23:48] LABS: Anion Gap 5 (5-15); Calcium 9.6 mg/dL (8.7-10.4); Carbon Dioxide 31 mmol/L (20-31)
[2024-05-18 23:53] LABS: BUN/Creatinine Ratio 15.4 (10.0-20.0); Blood Urea Nitrogen 12 mg/dL (9-23); Glucose 180 mg/dL (74-106)
[2024-05-19] VITALS (10 sets, daily range): BP systolic 129–155; BP diastolic 58–77; PULSE 62–82; RESP 16–22; TEMP 97.7–98.3; O2SAT 92–100
[2024-05-19] MEDS: SODIUM CHLORIDE 0.9% 1,000 ML IV ONE (00:26)
[2024-05-19 02:33] LABS: Urine Bacteria None Seen /hpf (None Seen)
[2024-05-19 02:48] LABS: Urine Blood Negative /uL (Negative); Urine Clarity Clear (Clear); Urine Color Light-Yellow (Yellow); Urine Protein, UAD Negative (Negative); Urine Specific Gravity 1.017 (1.001-1.035); Urine Urobilinogen Normal (Negative); Urine WBC 3 /hpf (0 - 5)
[2024-05-19] MEDS: IOHEXOL 300 MG/ML 100ML BOTTLE IJ ONE (03:42)
[2024-05-19] MEDS: PIPERACILLIN-TAZOB 3.375GM 100 ML IV ONE (08:35)
[2024-05-19] MEDS ORDERED: DOCUSATE SOD 100 MG CAP PO PRN (11:00)
[2024-05-19] MEDS ORDERED: MORPHINE SULFATE INJ 2 MG/ml SYRG IV PRN (11:00)
[2024-05-19] MEDS ORDERED: DEXTROSE (50%) 50ML SYRG IV PRN (11:00)
[2024-05-19] MEDS ORDERED: ALBUTEROL SULF 2.5 MG/0.5ML(0.5%) NEB SOLN NEB ONE (11:00)
[2024-05-19] MEDS ORDERED: IPRATROPIUM BROM 0.5 MG/2.5ML INH SOL NEB ONE (11:00)
[2024-05-19] MEDS ORDERED: ONDANSETRON HCL 4 MG/2 ML VIAL IV PRN (11:00)
[2024-05-19] MEDS ORDERED: NITROGLYCERIN 0.4 MG SL TAB SL PRN (11:00)
[2024-05-19] MEDS: ENOXAPARIN SOD 40 MG/0.4 ML SYRINGE SC SCH (11:24)
[2024-05-19] MEDS: cefTRIAXone 1GM/50ML D5W 50 ML IV ONE (11:24)
[2024-05-19] MEDS: LOSARTAN POTASSIUM 50 MG TAB PO SCH (11:25)
[2024-05-19] MEDS: CHOLECALCIFEROL (VITD3) 1,000UNIT=25mCg TAB PO SCH (11:26)
[2024-05-19] MEDS: PANTOPRAZOLE 40 MG TAB PO SCH (11:37)
[2024-05-19] MEDS: ALBUTEROL SULF 2.5 MG/0.5ML(0.5%) NEB SOLN NEB PRN (11:54)
[2024-05-19] MEDS: IPRATROPIUM BROM 0.5 MG/2.5ML INH SOL NEB PRN (11:54)
[2024-05-19] MEDS: ACCU-CHEK COMFORT CURVE STRIP VI SCH (11:59)
[2024-05-19] MEDS: InsuLIN REG 1unit/0.01ml Soln (100units/ml) SC SCH (12:02)
[2024-05-19] MEDS: ATENOLOL 25 MG TAB PO SCH (12:43)
[2024-05-19] MEDS: FERROUS SULFATE 325mg EC TAB PO SCH (14:00)
[2024-05-19] MEDS ORDERED: AZITHROMYCIN 500MG/ 250ML 250 ML IV ONE (18:00)
[2024-05-19] MEDS: AZITHROMYCIN 500MG/ 250ML 250 ML IV ONE (20:30)
[2024-05-19] MEDS: RANOLAZINE ER 500 MG TAB PO SCH (22:45)
[2024-05-20] VITALS (10 sets, daily range): BP systolic 121–151; BP diastolic 59–83; PULSE 60–78; RESP 16–20; TEMP 97.9–98.2; O2SAT 96–100
[2024-05-20 07:19] LABS: Basophils # (auto) 0 10 ^3/uL (0-0.2); Basophils % (auto) 0.3 % (0.0-2.0); Eosinophils # (auto) 0.1 10 ^3/uL (0-0.8); Eosinophils % (auto) 1.9 % (0.0-7.0); Hematocrit 32.1 % (36.0-46.0); Hemoglobin 10.8 g/dL (12.2-16.2); Lymphocytes # (auto) 1.5 10 ^3/uL (0.4-5.4); Lymphocytes % (auto) 26.9 % (10.0-50.0); Mean Corpuscular Hemoglobin 27.4 pg (28.0-32.0); Mean Corpuscular Hgb Conc. 33.5 g/dL (32.0-36.0); Mean Corpuscular Volume 81.8 fL (80.0-100.0); Monocytes # (auto) 0.4 10 ^3/uL (0-1.3); Monocytes % (auto) 7.4 % (0.0-12.0); Neutrophils # (auto) 3.5 10 ^3/uL (1.6-8.6); Neutrophils % (auto) 63.5 % (37.0-80.0); Platelet Count (auto) 236 10^3/uL (140-450); Red Blood Cells 3.92 10^6/uL (4.0-5.20); Red Cell Distribution Width 14.1 % (11.8-14.3); White Blood Cell 5.6 10^3/uL (4.4-10.8)
[2024-05-20 07:41] LABS: Alanine Aminotransferase 10 U/L (7-40); Alkaline Phosphatase 100 U/L (46-116); Anion Gap 5 (5-15); Aspartate Aminotransferase 13 U/L (13-40); BUN/Creatinine Ratio 9.7 (10.0-20.0); Blood Urea Nitrogen 6 mg/dL (9-23); Calcium 9.3 mg/dL (8.7-10.4); Carbon Dioxide 32 mmol/L (20-31); Chloride 102 mmol/L (98-107); Glucose 95 mg/dL (74-106); Potassium 4.4 mmol/L (3.5-5.1); Sodium 139 mmol/L (136-145)
[2024-05-20 07:42] LABS: Bilirubin, Total 0.9 mg/dL (0.2-1.0); Total Protein 6.4 g/dL (5.7-8.2)
[2024-05-20] MEDS: cefTRIAXone 1GM/50ML D5W 50 ML IV SCH (08:39)
[2024-05-20] MEDS: AZITHROMYCIN 500MG/ 250ML 250 ML IV SCH (11:13)
[2024-05-20] MEDS: BUMETANIDE 1 MG TAB PO SCH (11:16)
[2024-05-20] MEDS: ACETAMINOPHEN 500 MG TAB PO ONE (22:00)
[2024-05-21] VITALS (8 sets, daily range): BP systolic 121–165; BP diastolic 60–82; PULSE 60–87; RESP 14–19; TEMP 98–98.6; O2SAT 96–100
[2024-05-21 07:48] LABS: Anion Gap 4 (5-15); Carbon Dioxide 36 mmol/L (20-31); Chloride 99 mmol/L (98-107); Potassium 4.5 mmol/L (3.5-5.1); Sodium 139 mmol/L (136-145)
[2024-05-21 07:49] LABS: Calcium 9.7 mg/dL (8.7-10.4)
[2024-05-21 07:50] LABS: Basophils # (auto) 0 10 ^3/uL (0-0.2); Basophils % (auto) 0.3 % (0.0-2.0); Eosinophils # (auto) 0.1 10 ^3/uL (0-0.8); Hematocrit 35.1 % (36.0-46.0); Hemoglobin 11.8 g/dL (12.2-16.2); Lymphocytes # (auto) 1.3 10 ^3/uL (0.4-5.4); Lymphocytes % (auto) 21.1 % (10.0-50.0); Mean Corpuscular Hemoglobin 27.3 pg (28.0-32.0); Mean Corpuscular Hgb Conc. 33.7 g/dL (32.0-36.0); Monocytes # (auto) 0.5 10 ^3/uL (0-1.3); Monocytes % (auto) 8.5 % (0.0-12.0); Neutrophils # (auto) 4.1 10 ^3/uL (1.6-8.6); Neutrophils % (auto) 68.1 % (37.0-80.0); Platelet Count (auto) 268 10^3/uL (140-450); Red Blood Cells 4.33 10^6/uL (4.0-5.20); Red Cell Distribution Width 13.6 % (11.8-14.3)
[2024-05-21 07:53] LABS: Glucose 101 mg/dL (74-106)
[2024-05-21 07:54] LABS: Blood Urea Nitrogen 10 mg/dL (9-23)
[2024-05-21] MEDS ORDERED: FERROUS SULFATE 325mg EC TAB PO SCH (10:00)
[2024-05-21] MEDS ORDERED: ERGOCALCIFEROL 50,000 UNIT(1.25MG) CAP PO SCH (11:00)
[2024-05-21] MEDS ORDERED: CEPH250C PO (11:06)
[2024-05-21] MEDS ORDERED: AZIT-43 PO (11:06)
== END 2024-05-21 17:15 | disposition home or self-care (01) | DRG 137 ==
LOC: ER 22:15 → EDUNIT# 22:15 → EDBD 22:15 → OVERFLOW 05-19 10:54 → CENTRAL 05-19 12:22
PROVIDERS: ADMIT Nurse Practitioner Family; ATTEND Internal Medicine
DX: J15.69 Pneumonia due to other Gram-negative bacteria (principal); J96.11 Chronic respiratory failure with hypoxia; I50.9 Heart failure, unspecified; I11.0 Hypertensive heart disease with heart failure; J15.9 Unspecified bacterial pneumonia; J44.9 Chronic obstructive pulmonary disease, unspecified; D64.9 Anemia, unspecified; N10 Acute pyelonephritis; J98.11 Atelectasis; R73.9 Hyperglycemia, unspecified; K57.30 Diverticulosis of large intestine without perforation or abscess without bleeding; Z90.49 Acquired absence of other specified parts of digestive tract; Z90.710 Acquired absence of both cervix and uterus; Z99.81 Dependence on supplemental oxygen
CPT/HCPCS: 36415; 74177; 76705; 80048; 80053; 81001; 82306; 82607; 82962; 83036; 83880; 84443; 84484; 85025; 87086; 87088; 87186; 93005; 94640; G0378; J1815; J2543

== ENCOUNTER 2025-01-02 10:12 | Inpatient (IN) | payer MEDICARE, MEDICAID ==
[~2025-01-02] VITALS: Ht 144.8 cm; Wt 74.6 kg
[2025-01-02 10:12] VITALS: TEMP 98.4
[~2025-01-02 10:12] MED LIST changes: +AZIT-43 PO; -CEFD300C2 PO; +CEPH250C PO
--- NOTE | 2025-01-02 10:40 | ECG ---
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
[2025-01-02 11:13] LABS: Basophils # (auto) 0 10 ^3/uL (0-0.2); Basophils % (auto) 0.4 % (0.0-2.0); Eosinophils # (auto) 0.1 10 ^3/uL (0-0.8); Eosinophils % (auto) 1.4 % (0.0-7.0); Hematocrit 34.7 % (36.0-46.0); Hemoglobin 11.4 g/dL (12.2-16.2); Lymphocytes # (auto) 1.1 10 ^3/uL (0.4-5.4); Lymphocytes % (auto) 17.3 % (10.0-50.0); Mean Corpuscular Hemoglobin 26.2 pg (28.0-32.0); Mean Corpuscular Hgb Conc. 32.8 g/dL (32.0-36.0); Mean Corpuscular Volume 79.9 fL (80.0-100.0); Monocytes # (auto) 0.6 10 ^3/uL (0-1.3); Monocytes % (auto) 9.2 % (0.0-12.0); Neutrophils # (auto) 4.5 10 ^3/uL (1.6-8.6); Neutrophils % (auto) 71.7 % (37.0-80.0); Nucleated Red Blood Cells % 0.1 %; Platelet Count (auto) 284 10^3/uL (140-450); Red Blood Cells 4.34 10^6/uL (4.0-5.20); Red Cell Distribution Width 14.8 % (11.8-14.3); White Blood Cell 6.2 10^3/uL (4.4-10.8)
[2025-01-02 11:22] LABS: Chloride 99 mmol/L (98-107); Potassium 3.9 mmol/L (3.5-5.1); Sodium 140 mmol/L (136-145)
[2025-01-02 11:23] LABS: Anion Gap 6 (5-15); Carbon Dioxide 35 mmol/L (20-31)
[2025-01-02 11:24] LABS: Calcium 9.8 mg/dL (8.7-10.4)
--- NOTE | 2025-01-02 11:27 | DVH ---
CLINICAL INFORMATION: Shortness of breath. TECHNIQUE: Frontal and lateral chest radiographs were obtained. COMPARISON: XY CHEST TWO VIEWS ROUTINE on DOS: 05/19/24, XY CHEST TWO VIEWS ROUTINE on DOS: 12/02/23, X Y CHEST TWO VIEWS ROUTINE on DOS: 11/16/23 FINDINGS: Lungs: Small right pleural effusion with overlying atelectasis and consolidation. Mild atelectasis in the left lung base. Cardiac: Mild cardiomegaly. Pulmonary vasculature: Mild prominence of the pulmonary vasculature. Mediastinum/sameera: Within normal limits. Bones: Multilevel degenerative disc disease in the thoracic spine with disc space narrowing, endplate sclerosis, and endplate spurring. Chronic appearing compression deformities in the thoracic spine ap pear stable compared to the prior radiographs. Other: No other significant finding. IMPRESSION: 1. Cardiomegaly and prominence of the pulmonary vasculature suggesting pulmonary vascular congestion. 2. Small right pleural effusion with overlying atelectasis and consolidation. Mild atelectasis in the left lung base.Additional 3. Findings as described above.
[2025-01-02 11:29] LABS: BUN/Creatinine Ratio 20.4 (10.0-20.0); Blood Urea Nitrogen 19 mg/dL (9-23); Glucose 123 mg/dL (74-106)
[2025-01-02] MEDS ORDERED: FUROSEMIDE 40 MG/4 ML VIAL IV ONE (11:45)
--- NOTE | 2025-01-02 11:52 | ED.PDOC ---
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 OFFICER Hx Family History Family History: No family hx of DM, No family hx of HTN Social History Smoker: Non-Smoker Alcohol: Denies ETOH Use Drugs: Denies Drug Use Lives In: Home X-Ray, Labs, Meds, VS Vital Signs Date Time Temp Pulse Resp B/P (MAP) Pulse Ox O2 Delivery O2 Flow Rate FiO2 01/02/25 10:38 86 01/02/25 10:12 98.4 82 16 125/95 (105) 96 98.4 Lab Test 01/02/25 10:55 Range/Units White Blood Count 6.2 4.4-10.8 10^3/uL Red Blood Count 4.34 4.0-5.20 10^6/uL Hemoglobin 11.4 L 12.2-16.2 g/dL Hematocrit 34.7 L 36.0-46.0 % Mean Corpuscular Volume 79.9 L 80.0-100.0 fL Mean Corpuscular Hemoglobin 26.2 L 28.0-32.0 pg Mean Corpuscular Hemoglobin Concent 32.8 32.0-36.0 g/dL Red Cell Distribution Width 14.8 H 11.8-14.3 % Platelet Count 284 140-450 10^3/uL Mean Platelet Volume 6.9 6.9-10.8 fL Neutrophils (%) (Auto) 71.7 37.0-80.0 % Lymphocytes (%) (Auto) 17.3 10.0-50.0 % Monocytes (%) (Auto) 9.2 0.0-12.0 % Eosinophils (%) (Auto) 1.4 0.0-7.0 % Basophils (%) (Auto) 0.4 0.0-2.0 % Neutrophils # (Auto) 4.5 1.6-8.6 10 ^3/uL Lymphocytes # (Auto) 1.1 0.4-5.4 10 ^3/uL Monocytes # (Auto) 0.6 0-1.3 10 ^3/uL Eosinophils # (Auto) 0.1 0-0.8 10 ^3/uL Basophils # (Auto) 0 0-0.2 10 ^3/uL Nucleated Red Blood Cells 0.1 % Sodium Level 140 136-145 mmol/L Potassium Level 3.9 3.5-5.1 mmol/L Chloride Level 99 98-107 mmol/L Carbon Dioxide Level 35 H 20-31 mmol/L Anion Gap 6 5-15 Blood Urea Nitrogen 19 9-23 mg/dL Creatinine 0.93 0.550-1.02 mg/dL Glomerular Filtration Rate Calc 59 >90 mL/min BUN/Creatinine Ratio 20.4 H 10.0-20.0 Serum Glucose 123 H 74-106 mg/dL Calcium Level 9.8 8.7-10.4 mg/dL Troponin I High Sensitivity 5 </=34 ng/L B-Type Natriuretic Peptide 259.10 0-100 pg/mL CXR: IMPRESSION: 1. Cardiomegaly and prominence of the pulmonary vasculature suggesting pulmonary vascular congestion. 2. Small right pleural effusion with overlying atelectasis and consolidation. Mild atelectasis in the left lung base.Additional 3. Findings as described above. I personally scribed for CLARE PEREZ MD ([email or web address]) on 01/02/25 at 11:52. Electronically submitted by Misty Jansen ([email or web address]). I personally scribed for CLARE PEREZ MD ([email or web address]) on 01/02/25 at 11:54. Electronically submitted by Misty Jansen ([email or web address]). CLARE PEREZ MD January 02, 2025 11:52
--- NOTE | 2025-01-02 11:56 | ED.PDOC ---
HPI Comments 89-year-old female who comes in with chief complaint of generalized weakness. The patient states that the symptoms started yesterday and then worsened. The patient also developed some chest pain with some leg pain yesterday. Currently the patient is on 3 L oxygen nasal cannula at home but despite the oxygen she is still having more shortness for breath. There has been some nausea but no cough. She has had the leg swelling over the past three days. Chief Complaint: Chest Pain Time Seen by MD: 10:21 Primary Care Provider: NONE Reviewed Notes: Nurses Notes, Medications Allergies: Coded Allergies: NO KNOWN ALLERGIES (Unverified , 08/01/23) Home Meds Active Scripts Cephalexin (KEFLEX CAPSULE) 250 Mg Cp, 2 CAP PO BID for 5 Days, #20 CAP Prov:ADAM BLANTON DO 05/21/24 Azithromycin (Azithromycin) 250 Mg Tab, 250 MG PO DAILY MDD 500 for 5 Days, #6 TAB 0 Refills 2 TABLETS ORALLY ON DAY ONE, THEN 1 TABLET ORALLY DAILY FOR 4 DAYS Prov:ADAM BLANTON DO 05/21/24 Reported Medications Ferrous Sulfate (FERROUS SULFATE) 325 Mg Tb, 1 TAB PO TID, #30 TAB 3 Refills 08/01/23 Cholecalciferol (VITAMIN D3) 2,000 Unit Tab, 2000 UNIT PO DAILY, TAB 08/01/23 Ranolazine (Ranolazine ER) 500 Mg Tab, 500 MG PO BID, TAB 08/01/23 Patients Own Medication (PATIENTS OWN MEDICATION) . PTS OWN MED-OBTAIN FROM PT AND SEND TO RX DRUG: FREQ: RX# EXP: DATE DISP: TECH: RPH: 08/01/23 Bumetanide (Bumetanide) 2 Mg Tab, 2 MG PO DAILY for EDEMA, MG 08/01/23 Potassium Chloride (Klor-Con M20) 20 Meq Tab, 40 MEQ PO DAILY, TAB 08/01/23 Albuterol Sulfate (VENTOLIN MDI) 90 Mcg Ih, 2 PUFF IN QID PRN for SHORTNESS OF BREATH for 30 Days, MCG 06/10/22 Meloxicam (Meloxicam) 7.5 Mg Tab, 1 TAB PO DAILY, #30 TAB 2 Refills 06/10/22 Omeprazole (Omep[address] Dr) 20 Mg Cap, 20 MG PO DAILY, CAP 06/10/22 Losartan Potassium (Losartan Potassium) 100 Mg Tab, 100 MG PO DAILY for 30 Days, MG 06/10/22 Atenolol (Atenolol) 100 Mg Tab, 100 MG PO DAILY, MG 06/10/22 Information Source: Patient Mode of Arrival: Wheelchair Severity: Moderate Timing: Days Duration: Since onset Prehospital treatment: None Location: Substernal Radiation: No Radiation Quality: Pressure Onset: At Rest Cardiac Risk Factors: HTN PE Risk Factors: None History of: Similar pain in past Modifying Factors: Nothing Associated Signs and Symptoms: N/V (Nausea but no vomiting), Other (Bilateral leg swelling) Past Medical History PAST MEDICAL HISTORY: CHF, COPD, HTN, UTI'S Surgical History: Appendectomy, Cholecystectomy, Hysterectomy ASSISTIVE TECHNOLOGY SPECIALIST History: Denies all ASSISTIVE TECHNOLOGY SPECIALIST Hx Family History Family History: No family hx of DM, No family hx of HTN Social History Smoker: Non-Smoker Alcohol: Denies ETOH Use Drugs: Denies Drug Use Lives In: Home Constitutional: reports: weakness; denies: chills, diaphoresis, fatigue, fever, malaise, sweats, others EENTM: denies: blurred vision, double vision, ear bleeding, ear discharge, ear drainage, ear pain, ear ringing, eye pain, eye redness, hearing loss, mouth pain, mouth swelling, nasal discharge, nose bleeding, nose congestion, nose pain, photophobia, tearing, throat pain, throat swelling, voice changes, others Respiratory: reports: shortness of breath; denies: cough, hemoptysis, orthopnea, SOB at rest, SOB with excertion, stridor, wheezing, others Cardiovascular: reports: chest pain; denies: dizzy spells, diaphoresis, Dyspnea on exertion, edema, irregular heart beat, left arm pain, lightheadedness, palpitations, PND, syncope, others Gastrointestinal: denies: abdomen distended, abdominal pain, blood streaked bowels, constipated, diarrhea, dysphagia, difficulty swallowing, hematemesis, melena, nausea, poor appetite, poor fluid intake, rectal bleeding, rectal pain, vomiting, others Genitourinary: denies: abnormal vagina bleeding, burning, dyspareunia, dysuria, flank pain, frequency, hematuria, incontinence, pain, , vagina discharge, urgency, others Neurological: denies: dizziness, fainting, headache, left sided numbness, left sided weakness, numbness, paresthesia, pre-existing deficit, right sided numbness, right sided weakness, seizure, speech problems, tingling, tremors, weakness, others Musculoskeletal: denies: back pain, gout, joint pain, joint swelling, muscle pain, muscle stiffness, neck pain, others Integumetry: reports: others (Bilateral leg swelling); denies: bruises, change in color, change in hair/nails, dryness, laceration, lesions, lumps, rash, wounds Allergic/Immunocompromised: denies: Difficulty Healing, Frequent Infections, Hives, Itching, others Hematologic/Lymphatic: denies: anemia, blood clots, easy bleeding, easy bruising, swollen glands, others Endocrine: denies: excessive hunger, excessive sweating, excessive thirst, excessive urination, flushing, intolerance to cold, intolerance to heat, unexplained weight gain, unexplained weight loss, others Psychiatric: denies: anxiety, bipolar disorder, depression, hopeless, panic disorder, schizophrenia, sleepless, suicidal, others Physical Exam General Appearance: Moderate Distress, Obese HEENT: Normal ENT Inspection, Pharynx Normal, TMs Normal Neck: Full Range of Motion, Non-Tender, Normal, Normal Inspection Respiratory: Chest Non-Tender, Decreased Breath Sounds, No Accessory Muscle Use, Rales Cardiovascular: No Edema, No JVD, No Murmur, No Gallop, Normal Peripheral Pulses, Regular Rate/Rhythm Breast Exam: Deferred Gastrointestinal: No Organomegaly, Non Tender, No Pulsatile Mass, Normal Bowel Sounds, Soft Genitalia: Deferred Pelvic: Deferred Rectal: Deferred Extremities: No calf tenderness, Normal capillary refill, Normal inspection, Normal range of motion, Non-tender, No pedal edema Musculoskeletal : Apperance: Normal Neurologic: Alert, 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 Was a procedure done?: No CP Differential Dx Differential Diagnosis: Angina, Heart Failure, [place] Differential Diagnosis: CHF, HTN Encephalopathy X-Ray, Labs, Meds, VS Vital Signs Date Time Temp Pulse Resp B/P (MAP) Pulse Ox O2 Delivery O2 Flow Rate FiO2 5/14/25 12:42 86 01/02/25 12:15 80 01/02/25 10:38 86 01/02/25 10:12 98.4 82 16 125/95 (105) 96 98.4 Lab Test 01/02/25 11:55 01/02/25 10:55 Range/Units Troponin I High Sensitivity 6 5 </=34 ng/L White Blood Count 6.2 4.4-10.8 10^3/uL Red Blood Count 4.34 4.0-5.20 10^6/uL Hemoglobin 11.4 L 12.2-16.2 g/dL Hematocrit 34.7 L 36.0-46.0 % Mean Corpuscular Volume 79.9 L 80.0-100.0 fL Mean Corpuscular Hemoglobin 26.2 L 28.0-32.0 pg Mean Corpuscular Hemoglobin Concent 32.8 32.0-36.0 g/dL Red Cell Distribution Width 14.8 H 11.8-14.3 % Platelet Count 284 140-450 10^3/uL Mean Platelet Volume 6.9 6.9-10.8 fL Neutrophils (%) (Auto) 71.7 37.0-80.0 % Lymphocytes (%) (Auto) 17.3 10.0-50.0 % Monocytes (%) (Auto) 9.2 0.0-12.0 % Eosinophils (%) (Auto) 1.4 0.0-7.0 % Basophils (%) (Auto) 0.4 0.0-2.0 % Neutrophils # (Auto) 4.5 1.6-8.6 10 ^3/uL Lymphocytes # (Auto) 1.1 0.4-5.4 10 ^3/uL Monocytes # (Auto) 0.6 0-1.3 10 ^3/uL Eosinophils # (Auto) 0.1 0-0.8 10 ^3/uL Basophils # (Auto) 0 0-0.2 10 ^3/uL Nucleated Red Blood Cells 0.1 % Sodium Level 140 136-145 mmol/L Potassium Level 3.9 3.5-5.1 mmol/L Chloride Level 99 98-107 mmol/L Carbon Dioxide Level 35 H 20-31 mmol/L Anion Gap 6 5-15 Blood Urea Nitrogen 19 9-23 mg/dL Creatinine 0.93 0.550-1.02 mg/dL Glomerular Filtration Rate Calc 59 >90 mL/min BUN/Creatinine Ratio 20.4 H 10.0-20.0 Serum Glucose 123 H 74-106 mg/dL Calcium Level 9.8 8.7-10.4 mg/dL B-Type Natriuretic Peptide 259.10 0-100 pg/mL CXR: IMPRESSION: 1. Cardiomegaly and prominence of the pulmonary vasculature suggesting pulmonary vascular congestion. 2. Small right pleural effusion with overlying atelectasis and consolidation. Mild atelectasis in the left lung base.Additional 3. Findings as described above. The patient is being given Lasix 40 mg IV push The BNP is 259.10 The chemistry panel is within normal limits. The patient's CBC shows anemia with a hemoglobin of 11.4 and hematocrit of 34.7 The troponin level x2 is negative The patient is being admitted at this time with a diagnosis of acute on chronic diastolic heart failure The patient also was being admitted with a diagnosis of right pleural effusion and chest pain Images Reviewed?: Images reviewed and evaluated by me Time of 1ST Reevaluation: 13:58 Reevaluation 1ST: Improved Patient Education/Counseling: Diagnosis, Treatment, Prognosis Family Education/Counseling: No Family Present Departure 1 Departure Time of Disposition: 13:57 Impression: Primary Impression: Acute myocardial ischemia Additional Impressions: Acute on chronic diastolic heart failure Pleural effusion, right Disposition: 09 ADMITTED INPATIENT Admit to: [facility] Condition: Fair Critical Care Note Critical Care Time?: Yes (45 min-critical care time only) Stability Stability form required: Yes Unstable for transfer: Telemetry monitoring (Telemetry monitoring required), ED Physician Assesment (Clinical assesment) Heart Score Heart Score: Heart Score Response (Comments) Value History Moderate Suspicious 1 EKG Repolarization Disturb 1 Age >65 2 Risk Factors >3 or Hx ASHD 2 Troponin Normal limit 0 Total 6 I personally scribed for CLARE PEREZ MD ([email or web address]) on 01/02/25 at 11:56. Electronically submitted by Misty Jansen [email or web address]). CLARE PEREZ MD January 02, 2025 11:56
[2025-01-02 18:59] VITALS: BP 125/95; PULSE 86; RESP 16; O2SAT 96
[2025-01-02] MEDS ORDERED: ACETAMINOPHEN 325 MG TAB PO PRN (19:00)
[2025-01-02] MEDS ORDERED: ONDANSETRON HCL 4 MG/2 ML VIAL IV PRN (19:00)
[2025-01-02] MEDS ORDERED: ALBUTEROL SULF 2.5 MG/0.5ML(0.5%) NEB SOLN NEB PRN (19:00)
--- NOTE | 2025-01-02 19:05 | ECG ---
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
[2025-01-02] MEDS ORDERED: RANOLAZINE ER 500 MG TAB PO SCH (22:00)
[2025-01-03] MEDS ORDERED: ENOXAPARIN SOD 40 MG/0.4 ML SYRINGE SC SCH (10:00)
[2025-01-03] MEDS ORDERED: FUROSEMIDE 40 MG/4 ML VIAL IV SCH (10:00)
[2025-01-03] MEDS ORDERED: LOSARTAN POTASSIUM 50 MG TAB PO SCH (10:00)
[2025-01-03] MEDS ORDERED: ATENOLOL 25 MG TAB PO SCH (10:00)
== END 2025-01-02 19:49 | disposition left against medical advice (07) | DRG 291 ==
LOC: ER 10:12 → OVERFLOW 18:50
PROVIDERS: ADMIT Nurse Practitioner; ATTEND Nurse Practitioner
DX: I11.0 Hypertensive heart disease with heart failure (principal); I50.33 Acute on chronic diastolic (congestive) heart failure; I24.9 Acute ischemic heart disease, unspecified; J91.8 Pleural effusion in other conditions classified elsewhere; J44.9 Chronic obstructive pulmonary disease, unspecified; Z90.710 Acquired absence of both cervix and uterus; Z87.440 Personal history of urinary (tract) infections; Z90.49 Acquired absence of other specified parts of digestive tract
CPT/HCPCS: 36415; 71046; 80048; 83880; 84484; 85025; 93005; 99291; G0378